=== PATIENT | female | born 1990 | race Caucasian/White ===

== ENCOUNTER → 2018-01-23 | Day surgery (SDC) | payer OTHER ==
[~2018-01-23] MED LIST: SYNTHROID125 MCG PO
== END | disposition home or self-care (01) ==
LOC: CIR.AMB 08:08
DX: O02.1 Missed abortion (principal); Z3A.09 9 weeks gestation of pregnancy

== ENCOUNTER 2021-05-19 02:12 | Inpatient (IN) | payer OTHER ==
[~2021-05-19] VITALS: Ht 160 cm; Wt 142.4 kg
[2021-05-19] MEDS ORDERED: PRENATAL CAPLE1 EAC1 PO (03:50)
[2021-05-19] MEDS ORDERED: ORTHO DF 3,7751 EACH PO (03:50)
[2021-05-22] MEDS ORDERED: PROGESTERONE100 M1 (08:06)
[2021-05-22] MEDS ORDERED: KETO10TA2 PO (10:33)
[2021-05-22] MEDS ORDERED: OXYC1TAB9 PO (10:33)
== END 2021-05-22 14:46 | disposition home or self-care (01) | DRG 788 ==
LOC: LDR 02:12 → OB/GYN 02:12 → O/R 05:20 → OB/GYN 08:31 → SURG-SUITE 14:04
PROVIDERS: ADMIT Obstetrics & Gynecology; ATTEND Obstetrics & Gynecology
PROC: 4A1HXFZ Monitoring of Products of Conception, Cardiac Rhythm, External Approach (ICD-10-PCS; 2021-05-19)
PROC: 10D00Z1 Extraction of Products of Conception, Low, Open Approach (ICD-10-PCS; principal; 2021-05-19 07:00)
DX: O77.9 Labor and delivery complicated by fetal stress, unspecified (principal); O36.8330 Maternal care for abnormalities of the fetal heart rate or rhythm, third trimester, not applicable or unspecified; O42.013 Preterm premature rupture of membranes, onset of labor within 24 hours of rupture, third trimester; O62.0 Primary inadequate contractions; Z3A.36 36 weeks gestation of pregnancy; Z37.0 Single live birth; O99.284 Endocrine, nutritional and metabolic diseases complicating childbirth; E03.9 Hypothyroidism, unspecified; Z20.822 Contact with and (suspected) exposure to COVID-19